=== PATIENT | male | born 1995 | race African-American/Black ===

== ENCOUNTER 2022-08-07 11:07 | Emergency (ER) | payer MEDICAID ==
[~2022-08-07] VITALS: Ht 175.3 cm; Wt 77.0 kg
[2022-08-07 11:33] VITALS: BP 128/79
== END 2022-08-07 23:11 | disposition left against medical advice (07) ==
LOC: ER 11:07
DX: Z53.21 Procedure and treatment not carried out due to patient leaving prior to being seen by health care provider (principal); J45.909 Unspecified asthma, uncomplicated; Z98.890 Other specified postprocedural states